=== PATIENT | female | born 1940 | race Caucasian/White ===

== ENCOUNTER 2017-09-09 19:16 | Emergency (ER) | payer MEDICARE ==
--- NOTE | 2017-09-09 19:43 | Emergency Department Record ---
History of Present Illness - General Chief Complaint: Back Pain/Injury Stated Complaint: BACK PAIN/CHEST CONGESTION Time Seen by Provider: 09/09/17 19:26 Source: Patient Mode of Arrival: Ambulatory Limitations: No limitations - History of Present Illness Initial Comments: pt c/o back pain that gets worse with movement and makes it difficult to lay down. she also has a green productive cough. MD Complaint: Back pain Onset/Timin -: Days(s) Similar Symptoms Previously: No Severity: Mild Severity scale (1-10): 8 Quality: Aching Consistency: Constant Improves With: None Worsens With: None Associated Symptoms: Cough - Related Data Previous Rx's Medication Instructions Recorded Epinephrine [Epipen] 0.3 mg SQ ASDIR PRN #1 syr 08/22/15 Ascorbic Acid/Ascorbate Sodium 500 mg PO BID #20 tab.chew 09/09/17 [Vit C-Trang Hips 500 mg Chew Tb] Azithromycin [Zithromax] 250 mg PO DAILY #4 tab 09/09/17 Ferrous Sulfate [Iron] 325 mg PO DAILY #20 tab 09/09/17 Hydrocodone/Acetaminophen [[place] 0.5 - 1 tab PO TID PRN #7 tab 09/09/17 5mg/325mg] Allergies Allergy/AdvReac Type Severity Reaction Status Date / Time sulfamethoxazole Allergy HIVES Verified 08/30/14 21:31 [From Bactrim] trimethoprim [From Bactrim] Allergy HIVES Verified 08/30/14 21:31 Travel Screening - Travel/Exposure Within Last 30 Days Have you traveled within the last 30 days?: No - Travel/Exposure Within Last Year Have you traveled outside the [place] in the last year?: No - Additonal Travel Details Have you been exposed to anyone with a communicable illness?: No Review of Systems Reviewed: No additional complaints except as noted below Constitutional: Reports: As per HPI. Denies: Chills, Fever, Malaise, Night sweats, Weakness, Weight change Eyes: Reports: As per HPI. Denies: Eye discharge, Eye pain, Photophobia, Vision change ENT: Reports: As per HPI. Denies: Congestion, Dental pain, Ear pain, Epistaxis , Hearing loss, Throat pain Respiratory: Reports: As per HPI. Denies: Cough, Dyspnea, Hemoptysis, Stridor, Wheezes Cardiovascular: Reports: As per HPI. Denies: Arrhythmia, Chest pain, Dyspnea on exertion, Edema, Murmurs, Orthopnea, Palpitations, Paroxysmal nocturnal dyspnea, Rheumatic Fever, Syncope Endocrine: Reports: As per HPI. Denies: Fatigue, Heat or cold intolerance, Polydipsia, Polyuria Gastrointestinal: Reports: As per HPI. Denies: Abdominal pain, Constipation, Diarrhea, Hematemesis, Hematochezia, Melena, Nausea, Vomiting Genitourinary: Reports: As per HPI. Denies: Abnormal menses, Discharge, Dyspareunia, Dysuria, Frequency, Hematuria, Incontinence, Retention, Urgency Musculoskeletal: Reports: As per HPI. Denies: Arthralgia, Back pain, Gout, Joint swelling, Myalgia, Neck pain Skin: Reports: As per HPI. Denies: Bruising, Change in color, Change in hair/ nails, Lesions, Pruritus, Rash Neurological: Reports: As per HPI. Denies: Abnormal gait, Confusion, Headache, Numbness, Paresthesias, Seizure, Tingling, Tremors, Vertigo, Weakness Psychiatric: Reports: As per HPI. Denies: Anxiety, Auditory hallucinations, Depression, Homicidal thoughts, Suicidal thoughts, Visual hallucinations Hematological/Lymphatic: Reports: As per HPI. Denies: Anemia, Blood Clots, Easy bleeding, Easy bruising, Swollen glands Past Medical History - SOCIAL HISTORY Smoking Status: Never smoker Alcohol Use: None Drug Use: None - RESPIRATORY Hx Respiratory Disorders: No - CARDIOVASCULAR Hx Cardio Disorders: No - NEURO Hx Neuro Disorders: No - GI Hx Ulcer: Yes - Hx Genitourinary Disorders: No - ENDOCRINE Hx Endocrine Disorders: Yes Hx Diabetes: Yes Hx Thyroid Disease: Yes - MUSCULOSKELETAL Hx Musculoskeletal Disorders: Yes Hx Arthritis: Yes - PSYCH Hx Psych Problems: Yes Hx Depression: Yes - HEMATOLOGY/ONCOLOGY Hx Hematology/Oncology Disorders: No Family Medical History Any Significant Family History?: No Physical Exam - General General Appearance: Alert, Oriented x3, Cooperative, Mild distress - Head Head exam: Normal inspection - Eye Eye exam: Normal appearance, PERRL, EOMI Pupils: Normal accommodation - ENT ENT exam: Normal exam, Mucous membranes moist, Normal external ear exam, Normal orophraynx Ear exam: Normal external inspection. negative: External canal tenderness Nasal Exam: Normal inspection. negative: Discharge, Sinus tenderness Mouth exam: Normal external inspection, Tongue normal Teeth exam: Normal inspection. negative: Dental caries Throat exam: Normal inspection. negative: Tonsillar erythema, Tonsillar exudate - Neck Neck exam: Normal inspection, Full ROM. negative: Tenderness - Respiratory Respiratory exam: Normal lung sounds bilaterally. negative: Respiratory distress - Cardiovascular Cardiovascular Exam: Regular rate, Normal rhythm, Normal heart sounds - GI/Abdominal GI/Abdominal exam: Soft, Normal bowel sounds. negative: Tenderness - Rectal Rectal exam: Deferred - exam: Deferred - Extremities Extremities exam: Normal inspection, Full ROM, Normal capillary refill. negative: Tenderness - Back Back exam: Reports: Full ROM, Muscle spasm, Tenderness. Denies: Rash noted - Neurological Neurological exam: Alert, CN II-XII intact, Normal gait, Oriented X3 - Psychiatric Psychiatric exam: Normal affect, Normal mood - Skin Skin exam: Dry, Intact, Normal color, Warm Course Vital Signs 09/09/17 19:20 Temperature 98.3 F Pulse Rate 80 Respiratory 20 Rate Blood Pressure 191/70 Pulse Ox 98 - Reevaluation(s) Reevaluation #1: 09/09/17 20:54 d/w dr castillo Medical Decision Making - Lab Data Result diagrams: 09/09/17 19:45 09/09/17 19:45 Disposition Disposition: Discharge Clinical Impression: Bronchitis, Lung nodule Anemia Qualifiers: Anemia type: iron deficiency Iron deficiency anemia type: unspecified iron deficiency Qualified Code(s): D50.9 - Iron deficiency anemia, unspecified Back pain Qualifiers: Back pain location: thoracic back pain Chronicity: acute Back pain laterality: right Qualified Code(s): M54.6 - Pain in thoracic spine Disposition: Home, Self-Care Condition: (1) Good Instructions: Iron Deficiency Anemia (ED), Iron Rich Diet (ED), Acute Bronchitis (ED), Back Pain (ED), Pulmonary Nodules (ED) Additional Instructions: follow up with dr castillo on wednesday. call office tomorrow. return sooner if worse. Prescriptions: Ascorbic Acid/Ascorbate Sodium [Vit C-Trang Hips 500 mg Chew Tb] 500 mg PO BID # 20 tab.chew Azithromycin [Zithromax] 250 mg PO DAILY #4 tab Ferrous Sulfate [Iron] 325 mg PO DAILY #20 tab Hydrocodone/Acetaminophen [[place] 5mg/325mg] 0.5 - 1 tab PO TID PRN #7 tab PRN Reason: Pain - General Forms: Patient Portal Access Quality - Quality Measures Quality Measures: N/A - Blood Pressure Screening Does Patient Have Any of the Following: Active Dx of HTN Blood Pressure Classification: Hypertensive Reading Systolic Measurement: 191 Diastolic Measurement: 70 Screening for High Blood Pressure: Patient Exclusion, Hx of HTN [G9744]
[2017-09-09 19:54] LABS: BASO % 0.3 % (0-6); EOS % 1.7 % (0-6); GRAN % 64.7 % (47-80); HEMATOCRIT 27.2 % (35.0-47.0); LYMPH % 24.1 % (16-45); MEAN CELL VOLUME 75.8 fl (81-97); MEAN CORPUSCULAR HGB CONC 29.4 g/dl (32-36); MEAN PLATELET VOLUME 9.1 fl (7.4-10.4); MONO % 9.2 % (0-9); PLATELET COUNT 517 K/uL (130-400); RED BLOOD COUNT 3.59 M/uL (3.80-5.40); RED CELL DISTRIBUTION WIDTH 18.8 % (11.5-14.5); WHITE BLOOD COUNT W/O DIFF 10.7 K/uL (4.2-12.2)
[2017-09-09 19:57] LABS: MEAN CORPUSCULAR HEMOGLOBIN 22.2 pg (27-33)
[2017-09-09 20:19] LABS: BLOOD UREA NITROGEN 21 mg/dL (8-23); CREATININE 0.7 mg/dL (0.5-0.9); EST GLOMERULAR FILTRATION RATE > 60 mL/min; GLUCOSE,RANDOM 114 mg/dL (74-109); TROPONIN I < 0.30 ng/mL (0.00-0.300)
[2017-09-09] MEDS ORDERED: HYDROCODONE/APAP 5/325MG TABLET PO ONE (20:56)
[2017-09-09] MEDS ORDERED: AZITHROMYCIN 500 MG TABLET PO ONE (20:56)
--- NOTE | 2017-09-11 13:37 | RADIOLOGY REPORT ---
EXAM: CHEST 2 VIEWS HISTORY: BACK PAIN. PRODUCTIVE COUGH. TECHNIQUE: Upright PA and lateral views of the chest. COMPARISON: None. FINDINGS: The heart is not enlarged and the pulmonary vasculature is nondilated. The thoracic aorta is tortuous and atherosclerotic. Calcified granulomata are scattered within the lungs. Mild biapical pleural and parenchymal scarring is present. A subtle nodular opacity projects at the level of the lower right hemithorax measuring 9 mm. An additional nodular density is noted at the level of the right fifth costochondral junction, likely relating to costochondral cartilage calcification. The lungs and pleural spaces are otherwise clear. There are degenerative changes scattered throughout the visualized spine with mild to moderate dextroconvex scoliosis centered at the mid to upper thoracic levels. IMPRESSION: 1. NO EVIDENCE OF AN ACUTE INTRATHORACIC PROCESS. 2. HEALED GRANULOMATOUS DISEASE IN EACH LUNG. BIAPICAL LUNG SCARRING. 3. A 9 MM NODULAR OPACITY PROJECTING AT THE LEVEL OF THE LOWER RIGHT HEMITHORAX LATERALLY, LIKELY RELATING TO SUPERIMPOSITION OF NORMAL STRUCTURES, THOUGH AN INDETERMINATE LUNG NODULE CANNOT BE EXCLUDED. ADDITIONAL NODULAR DENSITY PROJECTING AT THE MEDIAL RIGHT HEMITHORAX BASE LIKELY RELATES TO COSTOCHONDRAL CARTILAGE CALCIFICATION. 4. DEGENERATIVE CHANGES OF THE VISUALIZED SPINE. JOB NUMBER: [id number] [facility]
== END 2017-09-09 21:12 | disposition home or self-care (01) ==
LOC: ER 19:16
DX: J20.9 Acute bronchitis, unspecified (principal); M54.6 Pain in thoracic spine; D50.9 Iron deficiency anemia, unspecified; R91.1 Solitary pulmonary nodule
CPT/HCPCS: 71020; 80048; 84484; 85025; 99283; 99284

== ENCOUNTER 2017-09-18 19:07 | Emergency (ER) | payer MEDICARE ==
--- NOTE | 2017-09-18 19:20 | Emergency Department Record ---
History of Present Illness - General Stated complaint: FALL/R HAND INJURY Time Seen by Provider: 09/18/17 19:14 Source: Patient, Family - History of Present Illness Initial comments: Just prior to arrival the patient missed a step landing on her right knee, and dislocating her right ring finger. Did not hit head, chest, or hips. MD Complaint: Extremity pain - Related Data Previous Rx's Medication Instructions Recorded Epinephrine [Epipen] 0.3 mg SQ ASDIR PRN #1 syr 08/22/15 Ascorbic Acid/Ascorbate Sodium 500 mg PO BID #20 tab.chew 09/09/17 [Vit C-Trang Hips 500 mg Chew Tb] Ferrous Sulfate [Iron] 325 mg PO DAILY #20 tab 09/09/17 Hydrocodone/Acetaminophen [[place] 0.5 - 1 tab PO TID PRN #7 tab 09/09/17 5mg/325mg] Cephalexin [Keflex] 500 mg PO QID #39 cap 09/18/17 Allergies Allergy/AdvReac Type Severity Reaction Status Date / Time sulfamethoxazole Allergy HIVES Verified 08/30/14 21:31 [From Bactrim] trimethoprim [From Bactrim] Allergy HIVES Verified 08/30/14 21:31 Past Medical History - SOCIAL HISTORY Smoking Status: Never smoker Drug Use: None - RESPIRATORY Hx Respiratory Disorders: No - CARDIOVASCULAR Hx Cardio Disorders: No - NEURO Hx Neuro Disorders: No - GI Hx Ulcer: Yes - Hx Genitourinary Disorders: No - ENDOCRINE Hx Endocrine Disorders: Yes Hx Diabetes: Yes Hx Thyroid Disease: Yes - MUSCULOSKELETAL Hx Musculoskeletal Disorders: Yes Hx Arthritis: Yes - PSYCH Hx Psych Problems: Yes Hx Depression: Yes - HEMATOLOGY/ONCOLOGY Hx Hematology/Oncology Disorders: No Physical Exam - General General Appearance: Alert, Oriented x3, Cooperative, Mild distress - Head Head exam: Atraumatic, Normal inspection - Eye Eye exam: Normal appearance, PERRL Pupils: Normal accommodation - ENT ENT exam: Normal exam, Mucous membranes moist, Normal external ear exam, Normal orophraynx, TM's normal bilaterally Ear exam: Normal external inspection. negative: External canal tenderness Nasal Exam: Normal inspection. negative: Discharge, Sinus tenderness Mouth exam: Normal external inspection, Tongue normal Teeth exam: Normal inspection. negative: Dental caries Throat exam: Normal inspection. negative: Tonsillar erythema, Tonsillar exudate - Neck Neck exam: Normal inspection, Full ROM. negative: Tenderness - Respiratory Respiratory exam: Normal lung sounds bilaterally. negative: Respiratory distress - Cardiovascular Cardiovascular Exam: Regular rate, Normal rhythm, Normal heart sounds - GI/Abdominal GI/Abdominal exam: Soft, Normal bowel sounds. negative: Tenderness - Rectal Rectal exam: Deferred - exam: Deferred - Extremities Extremities exam: Normal inspection, Full ROM, Normal capillary refill, Tenderness (right 4th PIP finger dislocated with tiny cut at edge of joint; right knee with abrasions over patella, no bony deformity ROM intact, CMS intact distallyto hand and foot.) - Back Back exam: Reports: Normal inspection, Full ROM. Denies: Muscle spasm, Rash noted, Tenderness - Neurological Neurological exam: Alert, Normal gait, Oriented X3, Reflexes normal - Psychiatric Psychiatric exam: Normal affect, Normal mood - Skin Skin exam: Dry, Intact, Normal color, Warm Course - Reevaluation(s) Reevaluation #1: 09/18/17 20:34 PROCEDURE: Upon arrival 4th digit of right hand PIP dislocation reduced without difficulty. Patient sent to xray. 2% with epi o.5 cc local to 0.5 cm wound on proximal 4th digit; copious irrigation, sub Q depth, no FB, no tendon. Closed skin with #3 5.0 prolene simple interrupteds. Patient tolerated well. 09/18/17 20:55 Medical Decision Making - Management Options MDM Management: No Additional Work-up Planned (suture removal only) - Data Complexity MDM Data: X-Ray Ordered and/or Reviewed (Right hand: diffuse advanced arthritic changes, no acute fracture seen. Per radiologist.) Disposition Disposition: Discharge Clinical Impression: Closed dislocation finger, proximal interphalangeal joint, traumatic Qualifiers: Encounter type: initial encounter Qualified Code(s): S63.289A - Dislocation of proximal interphalangeal joint of unspecified finger, initial encounter Laceration of finger Qualifiers: Encounter type: initial encounter Finger: ring finger Damage to nail status: with damage Foreign body presence: without foreign body Laterality: right Qualified Code(s): S61.314A - Laceration without foreign body of right ring finger with damage to nail, initial encounter Disposition: Home, Self-Care Condition: (1) Good Instructions: Fall Prevention for Older Adults (ED), Laceration (ED), Finger Dislocation (ED) Additional Instructions: Take antibiotics until gone Splint with viviana tape for comfort 5-7 days. Tylenol as directed as needed for pain. Take Keflex as directed until gone. Prescriptions: Cephalexin [Keflex] 500 mg PO QID #39 cap Quality - Quality Measures Quality Measures: N/A - Blood Pressure Screening Does Patient Have Any of the Following: No Blood Pressure Classification: Pre-Hypertensive BP Reading Systolic Measurement: 167 Diastolic Measurement: 83 Screening for High Blood Pressure: < Pre-Hypertensive BP, F/U Documented > [ G8950] Pre-Hypertensive Follow-up Interventions: Follow-up with rescreen every year.
[2017-09-18] MEDS ORDERED: Diph,Pert(Acell),Tet Vac 0.5 ML SYR IM ONE (19:23)
[2017-09-18] MEDS ORDERED: ACETAMINOPHEN 500 MG TABLET PO ONE (19:23)
[2017-09-18] MEDS ORDERED: CEPHALEXIN 500 MG CAPSULE PO STA (20:33)
--- NOTE | 2017-09-20 08:04 | RADIOLOGY REPORT ---
DATE: 09/18/2017. EXAM: RIGHT KNEE, FOUR VIEWS. HISTORY: Fall. Lacerations. TECHNIQUE: Four views of the right knee were obtained. FINDINGS: Mild soft tissue swelling. No prominent knee joint effusion. No fracture or malalignment. Mild superior and inferior patellar enthesophytes. Minimal tricompartmental degenerative spurring. IMPRESSION: NO ACUTE OSSEOUS ABNORMALITY. MILD SOFT TISSUE SWELLING. MINIMAL DEGENERATIVE SPURRING. JOB NUMBER: [id number] [facility]
--- NOTE | 2017-09-20 08:14 | RADIOLOGY REPORT ---
DATE: 09/18/2017. EXAM: RIGHT HAND, FOUR VIEWS. HISTORY: Postreduction fourth proximal digit. TECHNIQUE: Four views of the right hand were obtained. FINDINGS: The bones are osteopenic. There appear to be mild volar subluxations involving the second through fifth metacarpophalangeal joints. Correlate clinically. Additionally, there is scattered joint space narrowing essentially involving the distal interphalangeal and proximal interphalangeal joints as well as the metacarpophalangeal joints. Note is made of osseous reduction with osteophytes involving the interphalangeal joints. Well-corticated calcifications involving the volar and dorsal wrist, likely a sequela of remote trauma. There also appears to be chondrocalcinosis involving the triangular fibrocartilage complex. There is mild soft tissue swelling centered within the third and fourth proximal interphalangeal joint levels. IMPRESSION: 1. THERE ARE DEGENERATIVE CHANGES THROUGHOUT THE HAND. ADDITIONALLY, THERE ARE VOLAR SUBLUXATIONS OF THE METACARPOPHALANGEAL JOINTS AND SLIGHT ULNAR DEVIATION. CORRELATE FOR POSSIBLE SUPERIMPOSED INFLAMMATORY ARTHRITIS WELL. 2. NO CLEARLY ACUTE PROCESS IS SEEN. JOB NUMBER: [id number] [facility]
== END 2017-09-18 21:04 | disposition home or self-care (01) ==
LOC: ER 19:07
DX: S63.284A Dislocation of proximal interphalangeal joint of right ring finger, initial encounter (principal); S61.214A Laceration without foreign body of right ring finger without damage to nail, initial encounter; W10.9XXA Fall (on) (from) unspecified stairs and steps, initial encounter
CPT/HCPCS: 12001; 26770; 90715; 96372; 99283; 99284

== ENCOUNTER 2017-09-28 17:15 | Emergency (ER) | payer MEDICARE ==
--- NOTE | 2017-09-28 17:35 | Emergency Department Record ---
History of Present Illness - General Chief Complaint: Suture removal Stated Complaint: SUTURE REMOVAL RT HAND Time Seen by Provider: 09/28/17 17:31 Source: Patient Mode of arrival: Ambulatory Limitations: No limitations - History of Present Illness Initial Comments: 77 yo female presents for suture removal. She injured the finger 10 days ago. She does not have any complaints. She has full ROM with pain. No redness. MD Complaint: Suture/staple removal, Wound re-check Onset/Timin -: Days(s) Returns Today for: Staple/stitch removal, Wound recheck Symptoms Since Prior Visit: No new symptoms Associated Symptoms: None - Related Data Previous Rx's Medication Instructions Recorded Epinephrine [Epipen] 0.3 mg SQ ASDIR PRN #1 syr 08/22/15 Ascorbic Acid/Ascorbate Sodium 500 mg PO BID #20 tab.chew 09/09/17 [Vit C-Trang Hips 500 mg Chew Tb] Ferrous Sulfate [Iron] 325 mg PO DAILY #20 tab 09/09/17 Hydrocodone/Acetaminophen [[place] 0.5 - 1 tab PO TID PRN #7 tab 09/09/17 5mg/325mg] Cephalexin [Keflex] 500 mg PO QID #39 cap 09/18/17 Allergies Allergy/AdvReac Type Severity Reaction Status Date / Time sulfamethoxazole Allergy HIVES Verified 09/28/17 17:26 [From Bactrim] trimethoprim [From Bactrim] Allergy HIVES Verified 09/28/17 17:26 Travel Screening - Travel/Exposure Within Last 30 Days Have you traveled within the last 30 days?: No - Travel/Exposure Within Last Year Have you traveled outside the [place] in the last year?: No - Additonal Travel Details Have you been exposed to anyone with a communicable illness?: No - Travel Symptoms Symptom Screening: None Review of Systems Constitutional: Denies: Chills, Fever, Weakness Eyes: Denies: Vision change ENT: Denies: Congestion Respiratory: Denies: Cough Cardiovascular: Denies: Syncope Endocrine: Denies: Fatigue Gastrointestinal: Denies: Abdominal pain, Diarrhea, Nausea, Vomiting Genitourinary: Denies: Dysuria Musculoskeletal: Denies: Arthralgia Skin: Denies: Bruising, Change in color, Rash Neurological: Denies: Headache Psychiatric: Denies: Anxiety Hematological/Lymphatic: Denies: Easy bleeding, Easy bruising Past Medical History - SOCIAL HISTORY Smoking Status: Never smoker Alcohol Use: None Drug Use: None - RESPIRATORY Hx Respiratory Disorders: No - CARDIOVASCULAR Hx Cardio Disorders: No - NEURO Hx Neuro Disorders: No - GI Hx GI Disorders: Yes Hx Ulcer: Yes - Hx Genitourinary Disorders: No - ENDOCRINE Hx Endocrine Disorders: Yes Hx Diabetes: Yes Hx Thyroid Disease: Yes - MUSCULOSKELETAL Hx Musculoskeletal Disorders: Yes Hx Arthritis: Yes - PSYCH Hx Psych Problems: Yes Hx Depression: Yes - HEMATOLOGY/ONCOLOGY Hx Hematology/Oncology Disorders: No Family Medical History Any Significant Family History?: Yes Physical Exam - General General Appearance: Alert, Oriented x3, Cooperative, No acute distress - Head Head exam: Atraumatic, Normal inspection - Eye Eye exam: Normal appearance - ENT ENT exam: Normal exam - Neck Neck exam: Normal inspection - Cardiovascular Peripheral Pulses: 2+: Radial (L) - Rectal Rectal exam: Deferred - exam: Deferred - Extremities Extremities exam: Normal inspection Image of Hand: 1 - intact sutures, full ROM, no redness or warmth, no drainage Course Vital Signs 09/28/17 17:20 Temperature 98.0 F Pulse Rate 75 Respiratory 16 Rate Blood Pressure 161/58 Pulse Ox 98 - Reevaluation(s) Reevaluation #1: 09/28/17 17:34The sutures were removed without any difficulty without complication. Steri strip placed We discussed home care and reasons to return Disposition Disposition: Discharge Clinical Impression: Visit for suture removal Disposition: Home, Self-Care Condition: (1) Good Instructions: Stitches Removal (ED) Additional Instructions: Return if you have any concerns about the healing of your finger Time of Disposition: 17:35 Quality - Quality Measures Quality Measures: N/A - Blood Pressure Screening Does Patient Have Any of the Following: No Blood Pressure Classification: Hypertensive Reading Systolic Measurement: 161 Diastolic Measurement: 58 Screening for High Blood Pressure: < Pre-Hypertensive BP, F/U Documented > [ G8950] Pre-Hypertensive Follow-up Interventions: Referral to alternative/primary care provider.
== END 2017-09-28 17:48 | disposition home or self-care (01) ==
LOC: ER 17:15
DX: Z48.02 Encounter for removal of sutures (principal)